=== PATIENT | female | born 1965 | race Two or more races ===

== ENCOUNTER 2020-04-28 14:46 | Outpatient (RCR) | payer SELFPAY | END 2020-05-15 | disposition home or self-care (01) | LOC: WCC 14:46 | DX: T86.821 Skin graft (allograft) (autograft) failure (principal); I10 Essential (primary) hypertension; Z88.6 Allergy status to analgesic agent; Z90.49 Acquired absence of other specified parts of digestive tract; Z90.13 Acquired absence of bilateral breasts and nipples; Z90.5 Acquired absence of kidney | CPT/HCPCS: G0277 ×2 ==